=== PATIENT | male | born 1950 | race Caucasian/White ===

== ENCOUNTER → 2018-05-05 13:00 | Outpatient (CLI) | payer MEDICARE, BC | END | disposition home or self-care (01) | LOC: D.CT 13:00 | DX: R05 Cough (principal) ==

== ENCOUNTER → 2018-05-16 07:35 | Outpatient (CLI) | payer MEDICARE, BC | END | disposition home or self-care (01) | LOC: D.US 07:35 | DX: N28.89 Other specified disorders of kidney and ureter (principal) ==

== ENCOUNTER 2019-05-21 11:10 | Inpatient (IN) | payer MEDICARE, BC ==
[~2019-05-21] VITALS: Ht 188 cm; Wt 104.5 kg
[2019-05-21 11:49] LABS: BASOPHILS 0.4 % (0-2); EOSINOPHILS 2.7 % (0-7); HEMATOCRIT 47.6 % (42.0-54.0); HEMOGLOBIN 16.1 g/dL (13.5-17.5); IMMATURE GRANULOCYTES 0.3 % (0-5); LYMPHOCYTES 14.9 % (15-50); MCH 32.6 pg (26.0-34.0); MCHC 33.8 g/dL (31.0-37.0); MCV 96.4 fL (80.0-100.0); MEAN PLATELET VOLUME 10.9 fL (7.4-10.4); MONOCYTES 11.8 % (2-11); NEUTROPHILS 69.9 % (40-80); PLATELET COUNT 168 10x3/uL (130-400); RBC 4.94 10x6/uL (4.20-6.10); RDW 13.7 % (11.5-14.5); WBC 11.1 10x3/uL (4.8-10.8)
[2019-05-21 12:02] LABS: APTT 30.7 SECONDS (22.8-39.4); INR 1.1 (0.85-1.17); PROTIME 13.7 SECONDS (11.6-15.0)
[2019-05-21 12:11] LABS: ALKALINE PHOSPHATASE 94 U/L (46-116); ALT (SGPT) 30 U/L (10-68); BILIRUBIN - TOTAL 0.45 mg/dL (0.2-1.3); CALC OSMOLALITY 276 mosm/kg (275-300); CALCIUM 8.7 mg/dL (8.5-10.1); CARBON DIOXIDE 26.4 mmol/L (21.0-32.0); CHLORIDE - SERUM 104 mmol/L (98-107); CREATININE - SERUM 0.8 mg/dL (0.6-1.3); GLUCOSE 143 mg/dL (74-106); POTASSIUM - SERUM 4.1 mmol/L (3.5-5.1); PROTEIN - SERUM 7.1 g/dL (6.4-8.2); SODIUM 138 mmol/L (136-145); UREA NITROGEN 11 mg/dL (7-18); eGFR NON AFRICAN AMERICAN > 90 mL/min (90-120)
[2019-05-21 12:25] LABS: CKMB 1.4 U/L (0.0-3.6); CREATINE KINASE 217 UL (21-232); PRO BNP 71 pg/mL (0-125); TROPONIN-I < 0.017 ng/mL (0.000-0.060)
[2019-05-21 14:09] VITALS: BP 130/80
[2019-05-21] MEDS ORDERED: BREO ELLIPTA 11 EACH INH (15:10)
[2019-05-21 17:37] VITALS: BP 132/73; BMI 29.6
[2019-05-21 18:40] VITALS: Ht 188 cm; Wt 104.5 kg
[2019-05-21 18:52] LABS: CKMB 1.3 U/L (0.0-3.6); CREATINE KINASE 227 UL (21-232)
[2019-05-21 19:02] LABS: TROPONIN-I < 0.017 ng/mL (0.000-0.060)
[2019-05-21 20:00] VITALS: BP 136/78
[2019-05-21 23:47] LABS: CKMB 1.2 U/L (0.0-3.6); CREATINE KINASE 206 UL (21-232)
[2019-05-21 23:48] LABS: TROPONIN-I < 0.017 ng/mL (0.000-0.060)
[2019-05-22] VITALS: BP 127/76
[2019-05-22 04:00] VITALS: BP 134/76
[2019-05-22 05:45] LABS: BASOPHILS 0 % (0-2); EOSINOPHILS 0 % (0-7); HEMATOCRIT 46.9 % (42.0-54.0); HEMOGLOBIN 15.6 g/dL (13.5-17.5); IMMATURE GRANULOCYTES 0.2 % (0-5); LYMPHOCYTES 7.7 % (15-50); MCH 31.9 pg (26.0-34.0); MCHC 33.3 g/dL (31.0-37.0); MCV 95.9 fL (80.0-100.0); MEAN PLATELET VOLUME 10.9 fL (7.4-10.4); MONOCYTES 1.8 % (2-11); NEUTROPHILS 90.3 % (40-80); PLATELET COUNT 197 10x3/uL (130-400); RBC 4.89 10x6/uL (4.20-6.10); RDW 13.6 % (11.5-14.5); WBC 13.2 10x3/uL (4.8-10.8)
[2019-05-22 06:29] LABS: ALBUMIN 3.5 g/dL (3.4-5.0); ALKALINE PHOSPHATASE 78 U/L (46-116); ALT (SGPT) 33 U/L (10-68); CALC OSMOLALITY 280 mosm/kg (275-300); CALCIUM 8.4 mg/dL (8.5-10.1); CARBON DIOXIDE 27.2 mmol/L (21.0-32.0); CHLORIDE - SERUM 103 mmol/L (98-107); CKMB 1.6 U/L (0.0-3.6); CREATINE KINASE 185 UL (21-232); CREATININE - SERUM 0.9 mg/dL (0.6-1.3); POTASSIUM - SERUM 4.3 mmol/L (3.5-5.1); PROTEIN - SERUM 7.1 g/dL (6.4-8.2); SODIUM 137 mmol/L (136-145); TROPONIN-I < 0.017 ng/mL (0.000-0.060); UREA NITROGEN 12 mg/dL (7-18); eGFR NON AFRICAN AMERICAN 88 mL/min (90-120)
[2019-05-22 06:30] LABS: GLUCOSE 228 mg/dL (74-106)
[2019-05-22] MEDS ORDERED: ZITHROMAX250 MG PO (08:04)
[2019-05-22] MEDS ORDERED: MEDROL DOSE PACK4 MG PO (08:04)
[2019-05-22] MEDS ORDERED: COMBIVENT RESPIM4 GM INH (08:05)
[2019-05-22 08:35] VITALS: BP 142/79
--- NOTE | 2019-05-22 10:05 | MORECARE ---
CASE MANAGEMENT DISCHARGE SUMMARY PATIENT: ELLA YIP UNIT: [id number] ADM DATE: 05/21/19 AGE: 69 : 48 SEX: M ROOM/BED: D.2209 AUTHOR: BEBA BARBOSA PHYSICIAN: REFERRING PHYSICIAN: BILLIE MAR MD DATE OF SERVICE: 05/22/19 Discharge Plan Patient Name: ELLA YIP Facility: [facility]:[place] : 1950 Planned Disposition: Home or Self Care Anticipated Discharge Date: Discharge Date: Expected LOS: Initial Reviewer: [email or web address] Initial Review Date: 05/21/2019 Generated: 05/22/19 11:05 am Comments DCP- Discharge Planning Updated by [email or web address]: Humera Walsh on 05/22/19 9:[address] Patient Name: ELLA YIP Admission Status: ER Accout number: [id number] Admission Date: 05-21-2019 : 1950 Admission Diagnosis: Attending: BILLIE MAR Current LOS: 1 Anticipated DC Date: Planned Disposition: Home or Self Care Primary Insurance: MEDICARE A & B Discharge Planning Comments: CM met with patient to complete initial dc planning assessment. CM educated patient on the CM role and verbal consent given by patient to complete assessment. Patient lives at home with his where he is independent with his care. At discharge patient plans to return home and feels this is a safe discharge. 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 CM discussed availability of home health, rehab services, and medical equipment. Patient denied known discharge needs at this time. CM will continue to follow and will assist as needed with dc plans/needs. Ban[employer] Ripening Room Supervisor: Humera Walsh DCPIA - Discharge Planning Initial Assessment Updated by [email or web address]: Humera Walsh on 05/22/19 9:59 am * Is the patient Alert and Oriented? Yes * PCP ISABELA * Pharmacy [facility] * Preadmission Environment Home with Family * ADLs Independent * Equipment None * List name and contact numbers for known caregivers / representatives who currently or will assist patient after discharge: DEE ()[phone] * Verbal permission to speak to the caregivers and representatives has been obtained from the patient. N/A * Community resources currently utilized None * Additional services required to return to the preadmission environment? No * Can the patient safely return to the preadmission environment? Yes * Has this patient been hospitalized within the prior 30 days at any hospital? No Patient Name: ELLA YIP Page [phone] at 1005 All edits/amendments must be made on the electronic document DICTATION DATE: 05/22/191004 TRAINING AND DEVELOPMENT SPECIALIST: ROSEMARIE 05/22/191004 RPT#: [id number] DC DATE: STATUS: ADM IN [facility] [address] [place] [address] END OF REPORT
[2019-05-22 13:14] VITALS: BP 143/85
--- NOTE | 2019-05-25 14:53 | MORECARE ---
CASE MANAGEMENT DISCHARGE SUMMARY PATIENT: ELLA YIP UNIT: [id number] ADM DATE: 05/21/19 AGE: 69 : 48 SEX: M ROOM/BED: D.2209 AUTHOR: BEBA BARBOSA PHYSICIAN: REFERRING PHYSICIAN: BILLIE MAR MD DATE OF SERVICE: 05/25/19 Discharge Plan Patient Name: LELA YIP Facility: [facility]:[place] : 1950 Planned Disposition: Home or Self Care Anticipated Discharge Date: Discharge Date: 05/22/2019 Expected LOS: Initial Reviewer: [email or web address] Initial Review Date: 05/21/2019 Generated: 05/25/19 3:52 pm Comments DCP- Discharge Planning Updated by [email or web address]: Humera Walsh on 05/22/19 9:[address] Patient Name: ELLA YIP Admission Status: ER Accout number: [id number] Admission Date: 05-21-2019 : 1950 Admission Diagnosis: Attending: BILLIE MAR Current LOS: 1 Anticipated DC Date: Planned Disposition: Home or Self Care Primary Insurance: MEDICARE A & B Discharge Planning Comments: CM met with patient to complete initial dc planning assessment. CM educated patient on the CM role and verbal consent given by patient to complete assessment. Patient lives at home with his where he is independent with his care. At discharge patient plans to return home and feels this is a safe discharge. 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 CM discussed availability of home health, rehab services, and medical equipment. Patient denied known discharge needs at this time. CM will continue to follow and will assist as needed with dc plans/needs. Application Specialist: Humera Walsh DCPIA - Discharge Planning Initial Assessment Updated by [email or web address]: Humera Walsh on 05/22/19 9:59 am * Is the patient Alert and Oriented? Yes * PCP ISABELA * Pharmacy [facility] [address] * Preadmission Environment Home with Family * ADLs Independent * Equipment None * List name and contact numbers for known caregivers / representatives who currently or will assist patient after discharge: DEE ()[phone] * Verbal permission to speak to the caregivers and representatives has been obtained from the patient. N/A * Community resources currently utilized None * Additional services required to return to the preadmission environment? No * Can the patient safely return to the preadmission environment? Yes * Has this patient been hospitalized within the prior 30 days at any hospital? No Last DP export: 05/22/19 9:05 Patient Name: ELLA YIP Page [id number] at 1453 All edits/amendments must be made on the electronic document DICTATION DATE: 05/25/191451 EKG TECH: ROSEMARIE 05/25/191451 RPT#: [id number] DC DATE:05/22/19 STATUS: DIS IN [facility] [address] [place] [address] END OF REPORT
== END 2019-05-22 15:08 | disposition home or self-care (01) | DRG 192 ==
LOC: D.ER 11:10 → D.MS 13:55
PROVIDERS: Family Medicine; ADMIT Family Medicine; ATTEND Family Medicine
DX: J44.1 Chronic obstructive pulmonary disease with (acute) exacerbation (principal); R09.02 Hypoxemia; I25.10 Atherosclerotic heart disease of native coronary artery without angina pectoris

== ENCOUNTER → 2019-06-23 11:01 | Outpatient (CLI) | payer MEDICARE, BC ==
[2019-05-21 18:40] VITALS: BMI 29.6
[~2019-06-23 11:01] MED LIST: BREO ELLIPTA 11 EACH INH; COMBIVENT RESPIM4 GM INH; MEDROL DOSE PACK4 MG PO; ZITHROMAX250 MG PO
== END | disposition home or self-care (01) ==
LOC: D.HCCARDIO 11:01
PROVIDERS: ATTEND Internal Medicine Cardiovascular Disease
DX: I25.10 Atherosclerotic heart disease of native coronary artery without angina pectoris (principal)

== ENCOUNTER 2019-07-16 06:58 | Outpatient (CLI) | payer MEDICARE, BC ==
[~2019-07-16] VITALS: Ht 188 cm; Wt 109.1 kg
--- NOTE | ~2019-07-16 | HEMODYNAMI ---
PATIENT:JOVAN YIP MEDICAL RECORD: [id number] : 46 LOCATION:DANT ADMISSION DATE: 07/16/19 Generatedon:07/16/201912:22 Patient name: JOVAN YIP Patient #: [id number] SSN: [id number] : 1950 Date of study: 07/16/2019 Page: Of Hemodynamic Procedure Report Patient Data Patient Demographics Procedure consent was obtained First Name: JOVAN Gender: Male Last Name: THEODORA : 1950 [facility] Initial: J Age: 69 year(s) Patient #: [id number] Race: SSN: [id number] Additional ID: [id number] Contact details Address: [address] [place] [address] State: [place] City: [place] Zip code: [address] Past Medical History Allergies: No known allergies Admission Admission Data Admission Date: 07/16/2019 Admission Time: 6:58 Arrival Date: 07/16/2019 Arrival Time: 0:00 Admit Source: Other Insurance Payor: Medicare [facility] #: [id number] Height (in.): 74.02 BSA: 2.35 (m2) Height (cm.): 188 BMI: 30.84 (kg/m2) Weight (lbs.): 240.31 Weight (kg.): 109 Lab Results Lab Result Date: 07/16/2019 Lab Result Time: 0:00 Biochemistry Name Units Result Min Max BUN mg/dl 16 --(---*)-- 7 18 Creatinine mg/dl 1 --(--*-)-- 0.6 1.3 eGFR ml/min 78 *-(----)-- 90 120 NONAFRICAN CBC Name Units Result Min Max Hematocrit % 47.6 --(-*--)-- 42 54 Hemoglobin g/dl 16.2 --(--*-)-- 13.5 17.5 Procedure Procedure Types Cath Procedure Diagnostic Procedure LHC LHC w/Coronaries Sedation Charges Moderate Sedation up to 15 minutes PCI Procedure Coronary Stent Coronary Stent Initial Hemochron ACT Test Procedure Description Procedure Date Procedure Date: 07/16/2019 Procedure Start Time: 9:56 Procedure End Time: 10:29 Procedure Staff Name Function Son Hickman MD Performing Physician Pauline Sims RT Monitor Daniel Shi RN Nurse Leann Charles RT Monitor Arthur Oshea RT Commercial Underwriter Aubrie Fox RT Scrub Indication CAD Procedure Data Cath Procedure Fluoroscopy Diagnostic fluoroscopy Total fluoroscopy Time: 6.3 time: 6.3 min min Diagnostic fluoroscopy Total fluoroscopy dose: dose: 1499 mGy 1499 mGy Contrast Material Contrast Material Type Amount (ml) Isovue 300 124 Entry Location Entry Primary Successful Side Size Upsize Upsize Entry Closure [place] ccessful Closure Location (Fr) 1 (Fr) 2 (Fr) Remarks Device Remarks Radial Right 6 Fr Mechanical artery Short Compression Estimated blood loss: 10 ml Diagnostic catheters Device Type Used For End Catheter Placement DIAGNOSTIC Shiv 110cm Procedure 5Fr catheter ([id number]) Procedure Complications No complications Procedure Medications Medication Administration Route Dosage 0.9% NaCl I.V. 100 ml/hr Oxygen etCO2 Nasal cannula 2 l/min Heparin Flush Bag added to field 2 bags (1000units/500ml NS) Lidocaine 2% added to field 20 Radial Cocktail added to field 1 syringe (Verapamil 2mg/Nitro 400mcg/Heparin 1500units) Versed I.V. 2 mg Fentanyl I.V. 100 mcg Radial Cocktail I.A. 1 syringe (Verapamil 2mg/Nitro 400mcg/Heparin 1500units) Heparin Bolus I.V. 90917 units Plavix P.O. 600 mg Hemodynamics Rest BSA: 2.35 (m2) HGB: 16.2 (g/dl) O2 Consumption: Estimated: 263.03 (ml/min) O2 Co nsumption indexed: Estimated:111.93 (ml/min/m) Heart Rate: 60 (bpm) Pressure Samples Time Site Value (mmHg) Purpose Heart Use Rate(bpm) 9:59 LV 116/3,13 Snapshot 66 Gradients Valve Time Site Site Mean SEP/DFP Peak To Heart Use 1 2 (mmHg) (sec/min) Peak Rate (mmHg) (bpm) Aortic 10:00 LV AO 63 Snapshots Pre Cath Intra NCS Post Cath Vital Signs Time Heart Resp SPO2 etCO2 NIBP (mmHg) Rhythm Pain Sedation Rate (ipm) (%) (mmHg) Status Level (bpm) 9:39:40 61 14 98 34.2 130/80(90) NSR 0 (11) 10(A) , No pain 9:43:52 58 14 99 0 126/78(90) NSR 0 (11) 10(A) , No pain 9:48:02 61 14 100 0 130/76(108) NSR 0 (11) 10(A) , No pain 9:52:14 62 13 97 0 119/72(85) NSR 0 (11) 10(A) , No pain 9:56:23 61 13 97 0 122/69(98) NSR 0 (11) 10(A) , No pain 10:00:19 65 12 97 0 103/72(96) NSR 0 (11) 9(A) , No pain 10:04:18 67 11 97 0 121/77(94) NSR 0 (11) 9(A) , No pain 10:08:28 61 11 98 0 121/73(104) NSR 0 (11) 9(A) , No pain 10:12:36 63 11 98 35.6 126/75(96) NSR 0 (11) 10(A) , No pain 10:16:46 61 12 98 0 119/76(104) NSR 0 (11) 10(A) , No pain 10:20:52 62 12 99 34.1 131/83(116) NSR 0 (11) 10(A) , No pain 10:25:00 67 14 99 28.8 150/90(125) NSR 0 (11) 10(A) , No pain 10:29:14 62 12 100 34.9 139/94(111) NSR 0 (11) 10(A) , No pain Medications Time Medication Route Dose Verified Delivered Reason Not es Effectiveness by by 9:37:47 0.9% NaCl I.V. 100 Daniel Daniel Per physician ml/hr Jose Guadalupe Shi RN RN 9:37:55 Oxygen etCO2 2 l/min Daniel Daniel for low 02 sats Nasal Jose Guadalupe Shi cannula RN RN 9:38:07 Heparin Flush added 2 bags Daniel Daniel used for Bag to Jose Guadalupe Shi procedure (1000units/500ml field RN RN NS) 9:38:18 Lidocaine 2% added 20ml Daniel Daniel for local to vial Lorigan Lorigan anesthetic RN RN 9:38:29 Radial Cocktail added 1 Daniel Daniel used for (Verapamil to syringe Lorigan Jose Guadalupe procedure 2mg/Nitro RN RN 400mcg/Hepari 9:56:46 Versed I.V. 2 mg Daniel Daniel for sedation Jose Guadalupe Shi RN RN 9:56:54 Fentanyl I.V. 100 mcg Daniel Daniel for sedation Jose Guadalupe Shi RN RN 9:58:18 Radial Cocktail I.A. 1 Daniel Son for (Verapamil syringe Jose Guadalupe Hickman MD vasodilation 2mg/Nitro RN 400mcg/Hepari 10:09:41 Heparin Bolus I.V. 11,000 Daniel Daniel for units Jose Guadalupe Shi anticoagulation RN RN 10:22:19 Plavix P.O. 600 mg Daniel Daniel for Lorigan Jose Guadalupe antiplatelet RN RN therapy Procedure Log Time Note 9:03:22 Informed consent obtained and on chart 9:05:50 Patient allergic to No known allergies 9:05:57 Arrival Date: 07/16/2019 12:00:00 AM 9:06:33 Insurance Payor : Medicare 9:06:49 Patient Height : 74.02 inches 9:06:56 Patient Weight : 240.31 lbs 9:07:10 Admit Source: Other 9:08:14 Lab Result : Hemoglobin 16.2 g/dl 9:08:14 Lab Result : Hematocrit 47.6 % 9:08:14 Lab Result : eGFR NONAFRICAN 78 ml/min 9:08:14 Lab Result : BUN 16 mg/dl 9:08:14 Lab Result : Creatinine 1 mg/dl 9:09:41 Indication : CAD 9:09:58 Diagnostic Cath Status : Elective 9:17:32 H&P Date Dictated: 06/16/2019 Within 30 days and on chart., H&P Addendu m completed by physician on day of procedure. (MUST COMPLETE FOR ALL OUTPATIENTS). 9:18:10 Stress Test: yes; abnormal INFERIOR, SEPTAL, APICAL 9:19:59 Risk of Mortality: .2 9:20:01 Risk of blood transfusion: .1 9:20:04 Risk of SHAN: .5 9:20:10 Procedure Status Elective Heart Cath (OP). 9:20:11 Time tracking: Regular hours (M-F 7:00 - 5:00) 9:20:14 Plan of Care:Hemodynamics will remain stable., Cardiac rhythm will remain stable., Comfort level will be maintained., Respiratory function will remain adequate., Patient/ family verbilizes understanding of procedure., Procedure tolerated without complication., Recovers from procedure without complications.. 9:20:26 Arthur Dorie RT(R) sent for patient. Start room use. 9:22:38 ACCPatient has been prescribed/administered the following anti-anginal medication within the last 2 weeks: None 9:22:43 ACC Patient presents with Stable Angina CCS Anginal Class 3--Marked limitation of physical activity, angina occurs with ordinary activity.. 9:26:10 Patient received from Pre/Post Procedure Room to CCL 2 Alert and oriented. Tansferred to table in Supine position. 9:26:11 Correct patient and procedure confirmed by team. 9:26:11 Warm blankets applied, and samir hugger turned on for patient comfort. 9:26:12 ECG and BP/O2 sat monitors applied to patient. 9:34:49 Family in patients room. 9:34:54 Patient NPO since Midnight. 9:34:58 Is the patient allergic to Iodine/contrast media? No. 9:35:02 Was the patient premedicated? Yes 9:35:05 Is patient on blood thinner?No 9:35:18 Patient diabetic? No. 9:35:20 - 9:35:22 ----Pre-sedation anethsthesia assessment.---- 9:35:28 Previous problem with sedation/anesthesia? No ? 9:35:31 Snore? Yes 9:35:34 Sleep apnea? No 9:35:37 Deviated septum? No 9:35:39 Opens mouth fully? Yes 9:35:41 Sticks out tongue? Yes 9:35:47 Airway obstruction? No COPD 9:35:51 Dentures? No ? 9:37:47 0.9% NaCl 100 ml/hr I.V. was administered by Daniel Shi RN; Per physician; Verbal order read back and verified. 9:37:55 Oxygen 2 l/min etCO2 Nasal cannula was administered by Daniel Shi RN; for low 02 sats; Verbal order read back and verified. 9:38:07 Heparin Flush Bag (1000units/500ml NS) 2 bags added to field was administered by Daniel Shi RN; used for procedure; Verbal order read back and verified. 9:38:18 Lidocaine 2% 20ml vial added to field was administered by Daniel Shi RN; for local anesthetic; Verbal order read back and verified. 9:38:29 Radial Cocktail (Verapamil 2mg/Nitro 400mcg/Heparin 1500units) 1 syring e added to field was administered by Daniel Shi RN; used for procedure; Verbal order read back and verified. 9:38:35 Vital chart was started 9:38:41 Baseline sample Acquired. 9:38:49 Rhythm: sinus rhythm 9:39:03 Full Disclosure recording started 9:39:05 Pre-op teaching completed and patient verbalized understanding. 9:39:05 Pre-procedure instructions explained to patient. 9:39:22 Pre procedure: right dorsailis pedis pulse Doppler 9:39:32 Modified Justin's test Ulnar < 7 seconds 9:39:52 Patient pain scale 0/10 ?. 9:40:09 IV patent on arrival in left hand with 0.9% NaCl at O. 9:40:17 Lab results completed and on chart. 9:40:26 Right Radial & Right Groin area was prepped with chlora-prep and draped in sterile fashion 9:40:29 Sharps counted by scrub and verified by R.N. 9:40:29 Alarms reviewed by R. N. 9:40:39 Use device set Radial Dx or PCI 9:40:40 ACIST Syringe (34488) opened to sterile field. 9:40:41 Medline Cath Pack ([id number]) opened to sterile field. 9:40:42 Bag Decanter () opened to sterile field. 9:40:43 ACIST Hand Control (92277) opened to sterile field. 9:40:44 Tegaderm 4 x 4 (1626W) opened to sterile field. 9:40:44 ACIST Manifold (38766) opened to sterile field. 9:40:46 MBrace Wrist Support ([id number]) opened to sterile field. 9:40:47 NEEDLE Cook 21G 4cm Radial ([id number]) opened to sterile field. 9:40:49 EMERALD Guide Wire (608-338) opened to sterile field. 9:40:50 SHEATH 6FR RAIN (2118759) opened to sterile field. 9:48:45 --------ALL STOP TIME OUT------ 9:48:46 Final Timeout: patient, procedure, and site verified with staff and physician. All members of the team are in agreement. 9:48:47 Right Radial & Right Groin site verified by team. 9:48:50 Fire Safety Assessment: A--An alcohol-based skin anteseptic being used preoperatively., C--Open oxygen or nitrous oxide is being used., D--An ESU, laser, or fiber-optic light is being used. 9:48:54 Physical assessment completed. ASA score P 2 - A patient with mild systemic disease as per Son Hickman MD. 9:48:58 2) 60-89 Mildly reduced kidney function, and other findings (as for stage 1) point to kidney disease. 9:49:01 Maximum allowable contrast dose (3.7 X eGFR X 0.75)216 ml. 9:49:06 Sedation plan: IV Moderate Sedation Medication:Versed, Fentanyl 9:56:25 Procedure started. 9:56:43 Local anesthetic to right radial artery with Lidocaine 2% by Son Hickman MD.INITIAL ACCESS ONLY 9:56:46 Versed 2 mg I.V. was administered by Daniel Shi RN; for sedation; Verbal order read back and verified. 9:56:54 Fentanyl 100 mcg I.V. was administered by Daniel Shi RN; for sedation; Verbal order read back and verified. 9:57:36 A 6 Fr Short sheath was inserted into the Right Radial artery 9:58:18 Radial Cocktail (Verapamil 2mg/Nitro 400mcg/Heparin 1500units) 1 syring e I.A. was administered by Son Hickman MD; for vasodilation; Verbal order read back and verified. 9:58:25 A DIAGNOSTIC Shiv 110cm 5Fr catheter (341322) was advanced over the wire and used for Procedure. 9:58:52 LV gram done using GARCIA 9:58:57 Injector settings: Ml/sec: 5, Volume: 15, 9:59:34 LV hemodynamics recorded. 9:59:46 EF : 60 % 10:00:56 RCA angiography performed. 10:01:14 Injector settings: Ml/sec: ?, Volume: ?, 10:01:20 Injector settings: Ml/sec: 3, Volume: 6, 10:01:56 LCA angiography performed. 10:02:09 Injector settings: Ml/sec: 3, Volume: 6, 10:03:08 Catheter removed. 10:03:19 TUBING High Pressure Extension Tubing (Real Gravity) ([id number]) opened to sterile field. 10:03:30 INFLATOR Merit BasixCompak (JE3698) opened to sterile field. 10:04:28 BMW 300cm Straight [place] 2 wire (3043999) opened to sterile field. 10:04:39 GUIDE 6FR XBLAD 3.5 catheter ([id number]) opened to sterile field. 10:04:46 Proceeding to intervention. 10:05:02 6 Fr XBLAD3.5 guide catheter was inserted over the wire 10:05:33 Pre PCI Site: [place] pLAD has 80% stenosis. 10:05:39 ACC Pre-intervention ANUJ Flow is 3. 10:07:07 BMW wire advanced. 10:08:27 Wire removed. 10:08:35 Guide Catheter removed. unable to cannulate vessel. 10:08:48 GUIDE 6FR XBLAD 4.0 catheter ([id number]) opened to sterile field. 10:09:03 6 Fr XBLAD4 guide catheter was inserted over the wire 10:09:36 BMW wire advanced. 10:09:41 Heparin Bolus 11,000 units I.V. was administered by Daniel Shi RN; for anticoagulation; Verbal order read back and verified. 10:11:59 Wire advanced across lesion. 10:18:21 Place stent Inflation Number: 1 A INTEGRITY RX 3.5 x 18 stent ([id number]) was prepped and advanced across the Prox LAD . The stent was deployed at 14 OFELIA for 0:00 (min:sec) . 10:18:54 ACT drawn and resulted at OUT OF RANGE seconds. (normal therapeutic range 180-240 seconds). 10:19:12 Stent catheter was removed intact over wire. 10:19:20 Wire removed. 10:19:45 Guide catheter removed. 10:19:49 TR BAND Large ([id number]) opened to sterile field. 10:19:55 ACC Post-intervention ANUJ Flow is 3. 10:20:06 Post PCI Site: [place] pLAD has 0% stenosis. 10:20:17 Procedure ended.(Physican Out) 10:20:27 Sheath removed intact; hemostasis achieved with Mechanical Compression to the Right Radial artery. 10:21:45 Contrast amount:Isovue 300 124ml. 10:22:19 Plavix 600 mg P.O. was administered by Daniel Shi RN; for antiplatelet therapy; Verbal order read back and verified. 10:22:24 Maximum allowable dose exceeded? No. 10:22:39 Fluoroscopy time 06.30 minutes. 10:22:47 Fluoroscopy dose: 1499 mGy 10::47 Flurop Dose total: 1499 10:22:56 Dose Area Product 09679 mGy/cm. 10:22:59 Sharps counted by scrub and verified by R.N. 10:23:15 [place] band inflated with 8cc of air. 10:23:19 Insertion/operative site no bleeding no hematoma. 10:23:28 Post right radial artery:stable 10:25:08 Post Procedure Pulses reassessed and unchanged 10:25:14 Post-procedure physical assessment completed. ASA score P 2 - A patient with mild systemic disease as per Son Hickman MD. 10:25:18 Post procedure rhythm: unchanged. 10:25:24 Estimated blood loss: 10 ml 10:25:29 Post procedure instruction explained to patient.Patient verbalizes understanding. 10:25:30 Patient needs reinforcement of post procedure teaching. 10:26:41 Procedure type changed to Cath procedure, Diagnostic procedure, LHC, C w/Coronaries, Sedation Charges, Moderate Sedation up to 15 minutes, PCI procedure, Coronary Stent, Coronary Stent Initial, Hemochron ACT Test 10:26:43 Procedure and supply charges have been captured, reviewed, submitted an d are correct. 10:29:05 Procedure Complication : No complications 10::09 Vital chart was stopped 10:29:14 [facility] Findings: MVD- PCI performed (see procedure note) 10:29:16 Operative report dictated upon procedure completion. 10:29:17 See physician's report for complete and final results. 10:29:20 Report given to Pre/Post Procedure Room. 10:29:25 Patient transfered to Pre/Post Procedure Room with Stretcher. 10:29:28 Full Disclosure recording stopped 10:29:28 Procedure ended. 10:29:43 ACC-PCI Only Patient was given prescriptions, or instructed by Son Hickman MD to start/continue the following medications upon discharge: Plavix 10:29:45 End room use (Document Last) Intervention Summary Intervention Notes Time ActionType Lesion and Equipment Action# Pressure Duration Attributes Used 10:18:21 Place stent Prox LAD INTEGRITY RX 1 14 00:00 3.5 x 18 stent ([id number]) Device Usage Item Name Manufacture Quantity Catalog Hospital Part Current Minim al Lot# / Number Charge Number Stock Stock Serial# Code ACIST Acist 1 61425 051790 988684 [id number] 20 Syringe Medical (40310) Systems Inc Medline Cath Medline 1 [id number] 154118 52435 248898 5 Pack ([id number]) Bag Decanter Microtek 1 2002S 337721 22572 813989 5 (2002S) Medical Inc. ACIST Hand Acist 1 63940 709888 486035 549291 5 Control Medical (50850) Systems Inc ACIST Acist 1 05250 193335 880089 343974 5 Manifold Medical (97622) Systems Inc Tegaderm 4 x 3M 1 1626W 775466 871296 040687 5 4 (1626W) MBrace Wrist Advanced 1 140-0250-00 047241 25725 194047 5 Support Vascular (449514037) Dynamics NEEDLE Cook Cook Medical 1 H29356 515823 619377 177935 5 21G 4cm Radial (Z07306) EMERALD Cardinal 1 502-455 070441 346558 916691 5 Guide Wire Health (243-455) SHEATH 6FR Cardinal 1 2450158 957870 3372722 522652 5 [facility] (6886851) DIAGNOSTIC Terumo 1 405023 259387 622111 172088 5 Shiv 110cm 5Fr catheter (924492) TUBING High Merit 1 [id number] 273235 22842 077566 10 Pressure Medical Extension Tubing (Hickman) (VL0996Y) INFLATOR Merit 1 FJ7199 370911 410012 632300 15 [facility] Medical BasixCompak (KY9581) BMW 300cm Flores 1 9942741 066270 647438 797907 5 Straight Vascular [place] 2 wire (2589214) GUIDE 6FR Cardinal 1 [id number] 481070 437212 717170 10 XBLAD 3.5 Health catheter (20757471) GUIDE 6FR Cardinal 1 71036479 014724 197149 537748 3 XBLAD 4.0 Health catheter (78004477) INTEGRITY RX Medtronic 1 [id number] 307882 270253 738315 5 [id number] 3.5 x 18 stent ([id number]) TR BAND Terumo 1 [id number] 305940 868307 374129 40 Large ([id number]) Signature Audit [place] Stage Time Signature Unsigned Intra-Procedure 07/16/2019 Pauline 10:30:16 AM Bethany MARTINEZ(R) (CV) Intra-Procedure 07/16/2019 Daniel 10:30:49 AM Jose Guadalupe DE LEON Intra-Procedure 07/16/2019 Son Hickman MD 10:31:18 AM 07/16/2019 12:20:58 PM Intra-Procedure 07/16/2019 Son Hickman MD 12:22:23 PM Signatures Performing Physician : Signature : Son Hickman MD Date : Time : Monitor : Pauline Signature : Bethany RT Date : Time : Nurse : Daniel Shi Signature : RN Date : Time : Monitor : Leann Charles Signature : RT Date : Time : [address] [place] [address]
[2019-07-16] MEDS ORDERED: BAYER CHEWABLE81 MG PO (07:38)
[2019-07-16 07:52] VITALS: BP 198/78; Ht 188 cm; Wt 109.1 kg
[2019-07-16 08:06] LABS: CALC OSMOLALITY 282 mosm/kg (275-300); CALCIUM 8.6 mg/dL (8.5-10.1); CARBON DIOXIDE 26.3 mmol/L (21.0-32.0); CHLORIDE - SERUM 106 mmol/L (98-107); GLUCOSE 148 mg/dL (74-106); POTASSIUM - SERUM 4.2 mmol/L (3.5-5.1); SODIUM 140 mmol/L (136-145); UREA NITROGEN 16 mg/dL (7-18); eGFR NON AFRICAN AMERICAN 78 mL/min (90-120)
[2019-07-16 08:09] LABS: BASOPHILS 0.5 % (0-2); EOSINOPHILS 3.7 % (0-7); HEMATOCRIT 47.6 % (42.0-54.0); HEMOGLOBIN 16.2 g/dL (13.5-17.5); IMMATURE GRANULOCYTES 0.1 % (0-5); LYMPHOCYTES 30.7 % (15-50); MCH 32.7 pg (26.0-34.0); MEAN PLATELET VOLUME 10.8 fL (7.4-10.4); MONOCYTES 9.5 % (2-11); NEUTROPHILS 55.5 % (40-80); PLATELET COUNT 211 10x3/uL (130-400); RBC 4.96 10x6/uL (4.20-6.10); RDW 14.1 % (11.5-14.5); WBC 10.7 10x3/uL (4.8-10.8)
--- NOTE | 2019-07-16 10:38 | NUR ---
REC TO ROOM FROM HEAD RESIDENT VIA STRETCHER, MONITORING INITIATED. R WRIST W IMMOBILIZER, AND TR BAND. NO BLEEDING/HEMATOMA. WIGGLES FINGERS, NO C/O NUMBNESS.
--- NOTE | 2019-07-16 10:53 | NUR ---
R WRIST CDI, NO BLEEDING/HEMATOMA. HR 64, NIBP 140/82. RR 16, SAT 96% ON RA
--- NOTE | 2019-07-16 11:25 | NUR ---
R WRIST TR BAND INTACT, NO BLEEDING/HEMATOMA. FINGERS WARM, DENIES NUMBNESS/TINGLING. HR59, BP 132/76, RR 16, SAT 96%RA.
--- NOTE | 2019-07-16 11:35 | NUR ---
R WRIST TR BAND CDI, NO BLEEDING OR HEMATOMA. WIGGLES FINGERS, DENIES NUMBNESS OR TINGLING. HR 58, BP 121/73, SAT 96%RA, RR 16.
--- NOTE | 2019-07-16 12:05 | NUR ---
R WRIST TR BAND CDI, NO BLEEDING OR HEMATOMA. WIGGLES FINGERS. AT BEDSIDE.
--- NOTE | 2019-07-16 12:35 | NUR ---
R WRIST TR BAND CDI, NO BLEEDING OR HEMATOMA. VSS. HR 58, BP 136/77, RR 16, O2 SAT 96% RA. AT BEDSIDE.
[2019-07-16] MEDS ORDERED: PLAVIX75 MG PO (12:56)
--- NOTE | 2019-07-16 13:05 | NUR ---
R WRIST TR BAND CDI, NO BLEEDING OR HEMATOMA. FINGERS WARM, DENIES NUMBNESS/TINGLING. DRINKING COFFEE AND VISITING W . HR 64 NSR, BP 144/73, RR 14, SAT 97%.
--- NOTE | 2019-07-16 13:36 | NUR ---
R WRIST TR BAND CDI, NO BLEEDING/HEMATOMA. WIGGLES FINGERS, DENIES NUMBNESS/TINGLING. HR 63, NSR. BP 124/69, SAT 95% ON RA. RR 18. DENIES NEEDS.
--- NOTE | 2019-07-16 13:43 | NUR ---
2ML AIR REMOVED FROM TR BAND. NO BLEEDING NOTED. PT EATING SANDWICH.
--- NOTE | 2019-07-16 13:51 | NUR ---
2ML AIR REMOVED FROM TR BAND. NO BLEEDING NOTED. CONT TO MONITOR.
--- NOTE | 2019-07-16 14:05 | NUR ---
3ML AIR REMOVED FROM TR BAND. NO BLEEDING OR HEMATOMA. PT TEACHING RE NO ACTIVITY USING R ARM FOR 48HRS, AND RESTRICTED ACTIVITY FOR 4 DAYS TO FACILITATE SAFE HEALING OF RADIAL ARTERY DEFECT. PT AND VERBALIZE UNDERSTANDING.
--- NOTE | 2019-07-16 14:24 | NUR ---
2ML AIR REMOVED TR BAND, NO BLEEDING OR HEMATOMA. IV REMOVED FROM LHAND TIP INTACT. MONITORING DISCONTINUED. PT DRESSING WITH 'S ASSISTANCE.
--- NOTE | 2019-07-16 14:30 | NUR ---
pt dressed, R WRIST TR BAND REMOVED. DRESSED R WRIST WITH 2X2 AND TEGADERM. NO BLEEDING/HEMATOMA. PT AMB TO RESTROOM.
--- NOTE | 2019-07-16 14:35 | NUR ---
DC TEACHING REVIEWED, PT AMBULATE WITH NURSE TO PRIVATE CAR. HOME VIA PRIVATE CAR W , PT HAS ALL BELONGINGS.
== END 2019-07-16 14:35 | disposition home or self-care (01) ==
LOC: D.CATH 06:58
PROVIDERS: ATTEND Internal Medicine Cardiovascular Disease
DX: I25.119 Atherosclerotic heart disease of native coronary artery with unspecified angina pectoris (principal); R94.39 Abnormal result of other cardiovascular function study; R06.00 Dyspnea, unspecified; J44.9 Chronic obstructive pulmonary disease, unspecified

== ENCOUNTER 2020-11-08 07:27 | Day surgery (SDC) | payer MEDICARE, BC ==
[~2020-11-08] VITALS: Ht 188 cm; Wt 108.9 kg
--- NOTE | ~2020-11-08 | OP ---
PATIENT NAME: JOVAN YIP MEDICAL RECORD: [id number] :46 LOCATION:D.OPS ADMISSION DATE: SURGEON: VINCENT SCHUSTER MD DATE OF OPERATION: 11/08/2020 PREOPERATIVE DIAGNOSES: 1. Anal mass. 2. Chronic obstructive pulmonary disease. POSTOPERATIVE DIAGNOSES: 1. Anal mass. 2. Chronic obstructive pulmonary disease. PROCEDURE: 1. Anal exam under anesthesia. 2. Excision of anal mass. SURGEON: Vincent Schuster MD DESCRIPTION OF PROCEDURE: The patient was placed in lithotomy position and the perianal region was prepped and draped in sterile fashion and an inspection of the patient's anal region was performed using a Moulton-Ching anoscope. The patient had some small internal hemorrhoids, but nothing of any great significance. 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 The biopsy for this appeared to take away most of the lesion, but there was some inflammatory pedunculated tissue on the superior aspect of the anus at the 12 o'clock position. This appeared to be most consistent with what was seen on the colonoscopy. I went ahead and did an excision of this distal rectal and anal tissue by placing a 2-0 chromic at the base of the tissue and then excising the overlying skin tissue and sending this off for permanent specimen. I then irrigated out the wound and treated the area with electrocautery. The incision was then closed with running locked 2-0 chromic. We then placed a piece of Gelfoam with Americaine in the anus. COMPLICATIONS: None. CONDITION: Stable. ANESTHESIA: General endotracheal. BLOOD LOSS: 30 mL. TRANSINT:[id number] Voice Confirmation ID: [id number] DOCUMENT ID: [id number] VINCENT SCHUSTER MD CC: ALTON BOOTH DO [id number] DICTATION DATE: 11/08/20 1108 JOURNEYMAN PIPE WELDER: 11/08/[address] [facility] 11/08/[address] [address]
[~2020-11-08 07:27] MED LIST changes: +BAYER CHEWABLE81 MG PO; +PLAVIX75 MG PO
[2020-11-08 07:47] LABS: BASOPHILS 0.4 % (0-2); EOSINOPHILS 3.5 % (0-7); HEMATOCRIT 48.5 % (42.0-54.0); HEMOGLOBIN 16.4 g/dL (13.5-17.5); IMMATURE GRANULOCYTES 0.4 % (0-5); LYMPHOCYTE ABS# 3.56 10x3/uL (1.32-3.57); LYMPHOCYTES 32.6 % (15-50); MCH 31.6 pg (26.0-34.0); MCHC 33.8 g/dL (31.0-37.0); MCV 93.4 fL (80.0-100.0); MEAN PLATELET VOLUME 10.8 fL (7.4-10.4); MONOCYTES 7.6 % (2-11); NEUTROPHIL ABS# 6.07 10x3/uL (1.78-5.38); NEUTROPHILS 55.5 % (40-80); PLATELET COUNT 191 10x3/uL (130-400); RBC 5.19 10x6/uL (4.20-6.10); RDW 14.4 % (11.5-14.5); WBC 10.9 10x3/uL (4.8-10.8)
[2020-11-08 08:00] LABS: CALC OSMOLALITY 275 mosm/kg (275-300); CALCIUM 8.6 mg/dL (8.5-10.1); CARBON DIOXIDE 25.2 mmol/L (21.0-32.0); CHLORIDE - SERUM 104 mmol/L (98-107); CREATININE - SERUM 0.9 mg/dL (0.6-1.3); GLUCOSE 118 mg/dL (74-106); SODIUM 138 mmol/L (136-145); UREA NITROGEN 11 mg/dL (7-18); eGFR NON AFRICAN AMERICAN 88 mL/min (90-120)
[2020-11-08 10:02] VITALS: BP 143/81; Ht 188 cm; Wt 108.9 kg
[2020-11-08] MEDS ORDERED: HYDROCODON-ACE1 EA10 PO (11:04)
--- NOTE | 2020-11-08 11:38 | NUR ---
1130 AT SIDE, CRITERIA TO MEET PRIOR TO DISCHARGE GIVEN. CALL LIGHT AT SIDE.
--- NOTE | 2020-11-08 12:45 | NUR ---
DC INSTRUCTIONS REVIEWED WITH PT AND SPOUSE. COPY OF DC INSTRUCTIONS AND ORIGINAL RX FOR NORCO PROVIDED. ALSO GAVE PT SITZ BATH FOR PRN USAGE AT HOME. BOTH VOICED UNDERSTANDING OF INSTRUCTIONS. IV THEN DC'D WITH CATH TIP INTACT AND PT GETTING DRESSED WITH ASSISTANCE FROM SPOUSE. 1300 DISCHARGED VIA W/C, ACCOMPANIED BY HALEY BAZZI AND SPOUSE, TO PO WITH SPOUSE DRIVING. ALL BELONGINGS WITH SPOUSE.
== END 2020-11-08 13:00 | disposition home or self-care (01) ==
LOC: D.OPS 07:27
PROVIDERS: Anesthesiology; ATTEND Surgery
DX: A63.0 Anogenital (venereal) warts (principal); K63.5 Polyp of colon; K57.30 Diverticulosis of large intestine without perforation or abscess without bleeding; J44.9 Chronic obstructive pulmonary disease, unspecified